=== PATIENT | male | born 1950 | race African-American/Black ===

== ENCOUNTER 2017-05-10 17:28 | Emergency (ER) | payer OTHER, MEDICARE ==
--- NOTE | 2017-05-10 17:59 | ER Document Report ---
ED General - General Chief Complaint: High Blood Sugar Stated Complaint: BLOOD SUGAR PROBLEMS Time Seen by Provider: 05/10/17 17:41 Mode of Arrival: Ambulatory Information source: Patient Notes: 66-year-old diabetic male who is on metformin 850 mg twice daily presents with complaints of high blood sugar. Patient notes that he was diagnosed with a viral syndrome on Friday by his primary care physician notes that symptoms of high blood sugar have included urinary frequency otherwise he denies any other concerns. He was having diarrhea but took loperamide and has since been constipated TRAVEL OUTSIDE OF THE [place] IN LAST 30 DAYS: No - HPI Onset: Last week Onset/Duration: Persistent Quality of pain: No pain Severity: Mild Pain Level: Denies Associated symptoms: Diarrhea, Other Exacerbated by: Denies Relieved by: Denies Similar symptoms previously: Yes Recently seen / treated by doctor: Yes - Was seen by primary care physician started on IV fluids - Related Data Allergies/Adverse Reactions: No Known Allergies Allergy (Verified 05/10/17 17:31) Home Medications: Current Home Medications Amlodipine Besylate/Benazepril [Amlodipine-Benazepril 10-40 mg] 1 cap PO DAILY 05/10/17 [History] Aspirin 81 mg PO DAILY 05/10/17 [History] Chlorthalidone [Chlorthalidone] 50 mg PO DAILY 05/10/17 [History] Esomeprazole Mag Trihydrate [Nexium] 40 mg PO DAILY PRN 05/10/17 [History] Levothyroxine Sodium 100 mg PO QAM 05/10/17 [History] Losartan/Hydrochlorothiazide [Losartan-Hctz 100-25 mg Tab] 1 each PO DAILY 05/10 [History] Metformin HCl [Metformin HCl] 850 mg PO BID 05/10/17 [History] Pravastatin Sodium [Pravastatin Sodium] 20 mg PO DAILY 05/10/17 [History] Past Medical History - Social History Smoking Status: Never Smoker Cigarette use (# per day): No Chew tobacco use (# tins/day): No Smoking Education Provided: No Family History: Reviewed & Not Pertinent Patient has suicidal ideation: No Patient has homicidal ideation: No Renal/ Medical History: Denies: Hx Peritoneal Dialysis Review of Systems - Review of Systems Notes: REVIEW OF SYSTEMS: CONSTITUTIONAL : Denies fever, chills, or sweats. Denies recent illness. EENT: Denies eye, ear, throat, or mouth pain or symptoms. Denies nasal or sinus congestion or discharge. Denies throat, tongue, or mouth swelling or difficulty swallowing. CARDIOVASCULAR: Denies chest pain. Denies palpitations or racing or irregular heart beat. Denies ankle edema. RESPIRATORY: Denies cough, cold, or chest congestion. Denies shortness of breath, difficulty breathing, or wheezing. GASTROINTESTINAL: Had diarrhea but now constipated GENITOURINARY: Admits to urinary frequency MUSCULOSKELETAL: Denies back or neck pain or stiffness. Denies joint pain or swelling. SKIN: Denies rash, lesions or sores. HEMATOLOGIC : Denies easy bruising or bleeding. LYMPHATIC: Denies swollen, enlarged glands. NEUROLOGICAL: Denies confusion or altered mental status. Denies passing out or loss of consciousness. Denies dizziness or lightheadedness. Denies headache. Denies weakness or paralysis or loss of use of either side. Denies problems with gait or speech. Denies sensory loss, numbness, or tingling. Denies seizures. PSYCHIATRIC: Denies anxiety or stress. Denies depression, suicidal ideation, or homicidal ideation. ALL OTHER SYSTEMS REVIEWED AND NEGATIVE. Dictation was performed using [employer] voice recognition software PHYSICAL EXAMINATION: GENERAL: Well-appearing, well-nourished and in no acute distress. HEAD: Atraumatic, normocephalic. EYES: Pupils equal round and reactive to light, extraocular movements intact, sclera anicteric, conjunctiva are normal. ENT: Nares patent, oropharynx clear without exudates. Moist mucous membranes. NECK: Normal range of motion, supple without lymphadenopathy LUNGS: Breath sounds clear to auscultation bilaterally and equal. No wheezes rales or rhonchi. HEART: Regular rate and rhythm without murmurs ABDOMEN: Soft, nontender, nondistended abdomen. No guarding, no rebound. No masses appreciated. Musculoskeletal: Normal range of motion, no pitting or edema. No cyanosis. NEUROLOGICAL: Cranial nerves grossly intact. Normal speech, normal gait. Normal sensory, motor exams PSYCH: Normal mood, normal affect. SKIN: Warm, Dry, normal turgor, no rashes or lesions noted. Physical Exam - Vital signs Vitals: Temp Pulse Resp BP Pulse Ox 98.9 F 102 H 18 142/71 H 98 05/10/17 17:31 05/10/17 17:31 05/10/17 17:31 05/10/17 17:31 05/10/17 17:31 Course - Re-evaluation Re-evalutation: 05/10/17 18:00 Patient's examination is quite benign, he is in no distress, I will place an IV give him IV fluids and hydrate him further 05/10/17 20:40 His blood sugars improved to 51, he overall looks well is in no distress, I will discharge home at this time with understand that she must return immediately if there are any other concerns After performing a Medical Screening Examination, I estimate there is LOW risk for ACUTE APPENDICITIS, BOWEL OBSTRUCTION, ACUTE CHOLECYSTITIS, PERFORATED DIVERTICULITIS, INCARCERATED HERNIA, PANCREATITIS, TESTICULAR TORSION or PERFORATED ULCER, thus I consider the discharge disposition reasonable. Also, there is no evidence or peritonitis, sepsis, or toxicity. I have reevaluated this patient multiple times and no significant life threatening changes are noted. The patient and I have discussed the diagnosis and risks, and we agree with discharging home with close follow-up with the understanding that symptoms and presentations can change. We also discussed returning to the Emergency Department immediately if new or worsening symptoms occur. We have discussed the symptoms which are most concerning (e.g., bloody stool, fever, changing or worsening pain, intractable vomiting - standard verbal up date) that necessitate immediate return. - Vital Signs Vital signs: Temp Pulse Resp BP Pulse Ox 97.4 F 86 16 143/73 H 97 05/10/17 20:30 05/10/17 20:30 05/10/17 20:30 05/10/17 20:30 05/10/17 20:30 - Laboratory Result Diagrams: 05/10/17 18:10 05/10/17 18:10 Laboratory results interpreted by me: 05/10/17 05/10/17 05/10/17 18:00 18:10 18:10 WBC 16.3 H RBC 3.71 L Hgb 11.5 L Hct 34.3 L Plt Count 521 H Seg Neutrophils % 83.1 H Lymphocytes % 9.9 L Absolute Neutrophils 13.6 H Sodium 133.8 L Chloride 92 L BUN 24 H Creatinine 1.34 H Est GFR (Non-Af Amer) 53 L Glucose 301 H POC Glucose Direct Bilirubin 0.5 H Alkaline Phosphatase 135 H Urine Protein >=500 H Urine Glucose (UA) >=500 H 05/10/17 19:50 WBC RBC Hgb Hct Plt Count Seg Neutrophils % Lymphocytes % Absolute Neutrophils Sodium Chloride BUN Creatinine Est GFR (Non-Af Amer) Glucose POC Glucose 251 H Direct Bilirubin Alkaline Phosphatase Urine Protein Urine Glucose (UA) Discharge - Discharge Clinical Impression: Hyperglycemia Constipation Qualifiers: Constipation type: unspecified constipation type Qualified Code(s): K59.00 - Constipation, unspecified Condition: Stable Disposition: HOME, SELF-CARE Instructions: Control of Diabetes During Illness ([facility]), Hyperglycemia ([facility]) Additional Instructions: Follow up with your physician tomorrow for further care or return to the ED IMMEDIATELY if symptoms worsen or new concerns occur. If you cannot afford to follow up with your primary care physician a list of low cost clinics have been provided at the end of your discharge papers as well. Referrals: ELISEO ROCHE MD [Primary Care Provider] - Follow up as needed
[2017-05-10] MEDS: NORMAL SALINE 1000 ML 1,000 ML IV PRN ×2 (18:13→19:33)
[2017-05-10 18:22] LABS: APPEARANCE,URINE SLIGHTLY-CLOUDY; BILIRUBIN,URINE NEGATIVE (NEGATIVE); GLUCOSE, URINE >=500 mg/dL (NEGATIVE); KETONES,URINE NEGATIVE (NEGATIVE); LEUKOCYTE ESTERASE,URINE NEGATIVE (NEGATIVE); NITRITE,URINE NEGATIVE (NEGATIVE); PROTEIN,URINE >=500 mg/dL (NEGATIVE); URINE SPECIFIC GRAVITY 1.012; UROBILINOGEN,URINE NEGATIVE mg/dL (<2.0)
[2017-05-10 18:31] LABS: ABSOLUTE EOSINOPHILS # (AUTO) 0.1 10^3/uL (0.0-0.6); ABSOLUTE LYMPHOCYTES (AUTO) 1.6 10^3/uL (0.5-4.7); ABSOLUTE NEUT (AUTO) 13.6 10^3/uL (1.7-8.2); BASOPHILS % (AUTO) 0.2 % (0-2); EOSINOPHILS % (AUTO) 0.5 % (0-6); HEMATOCRIT 34.3 % (37.9-51.0); HEMOGLOBIN 11.5 g/dL (13.5-17.0); HGB HCT DIFFERENCE 0.2; LYMPHOCYTES % (AUTO) 9.9 % (13-45); MEAN CORPUSCULAR HEMOGLOBIN 31.1 pg (27.0-33.4); MEAN CORPUSCULAR HGB CONC 33.7 g/dL (32.0-36.0); MEAN CORPUSCULAR VOLUME 92 fl (80-97); MONOCYTES % (AUTO) 6.3 % (3-13); RED BLOOD COUNT 3.71 10^6/uL (4.35-5.55); RED CELL DISTRIBUTION WIDTH 13.5 % (11.5-14.0); SEGMENTED NEUTROPHILS % (AUTO) 83.1 % (42-78); WHITE BLOOD COUNT 16.3 10^3/uL (4.0-10.5)
[2017-05-10 18:33] LABS: VENOUS BLOOD BASE EXCESS 1.8 mmol/L; VENOUS BLOOD HCO3 26.4 mmol/L (20-32); VENOUS BLOOD PCO2 41.7 mmHg (35-63); VENOUS BLOOD PH 7.42 (7.30-7.42)
--- NOTE | 2017-05-10 18:47 | RADIOLOGY REPORT (SQ) ---
EXAM DESCRIPTION: KUB/ABDOMEN (SINGLE VIEW) COMPLETED DATE/TIME: 05/10/2017 6:38 pm REASON FOR STUDY: constipation COMPARISON: None. NUMBER OF VIEWS: One view. TECHNIQUE: Supine radiographic image of the abdomen acquired. LIMITATIONS: None. FINDINGS: BOWEL GAS PATTERN: Normal bowel gas pattern. No dilated loops. CALCIFICATIONS: No suspicious calcifications. SOFT TISSUES: No gross mass or suggestion of organomegaly. HARDWARE: None in the abdomen. BONES: No acute fracture. No worrisome bone lesions. OTHER: No other significant finding. IMPRESSION: NO RADIOGRAPHIC EVIDENCE FOR ACUTE ABDOMINAL DISEASE. TECHNICAL DOCUMENTATION: JOB ID: [id number] [email or web address]- All Rights Reserved
[2017-05-10 18:48] LABS: ALANINE AMINOTRANSFERASE 69 U/L (21-72); ALBUMIN 4.1 g/dL (3.5-5.0); ALKALINE PHOSPHATASE 135 U/L (38-126); ANION GAP 15 (5-19); ASPARTATE AMINO TRANSFERASE 26 U/L (17-59); BILIRUBIN,DIRECT 0.5 mg/dL (0.0-0.4); BILIRUBIN,TOTAL 0.5 mg/dL (0.2-1.3); BLOOD UREA NITROGEN 24 mg/dL (7-20); CALCIUM 9.6 mg/dL (8.4-10.2); CARBON DIOXIDE 27 mmol/L (22-30); CHLORIDE 92 mmol/L (98-107); CREATININE RESULT 1.34 mg/dL (0.52-1.25); GLUCOSE 301 mg/dL (75-110); POTASSIUM 4.6 mmol/L (3.6-5.0); SODIUM 133.8 mmol/L (137-145); TOTAL PROTEIN 7.3 g/dL (6.3-8.2)
[2017-05-10 20:34] VITALS: BP 143/73
== END 2017-05-10 20:30 | disposition home or self-care (01) ==
LOC: ER 17:28
DX: R73.9 Hyperglycemia, unspecified (principal); Z79.84 Long term (current) use of oral hypoglycemic drugs; K59.00 Constipation, unspecified; R35.0 Frequency of micturition
CPT/HCPCS: 99285; 96360; 96361; 36415; 82962; 85025; 80053; 81001; 82803; 74000; J7030